=== PATIENT | male | born 1975 | race Caucasian/White ===

== ENCOUNTER 2019-05-11 19:11 | Inpatient (IN) | payer MEDICAID, OTHER ==
--- NOTE | 2019-05-11 20:09 | ED ---
Psychiatric Complaint - HPI Summary HPI Summary: 44 [facility] [place] and father having paranoid thoughts about the police and people from [place] following him x1.5 weeks. 2 days ago, patient started feeling that he needed to run from these people. He states that after parking his car, he was chased into the [place] and had to hide there for hours. Patient states they confronted him at one point but didn't say anything to him. Parents wanted him to be evaluated in the ED for these thoughts. Symptoms aggravated by nothing. Symptoms alleviated by nothing. No similar symptoms in the past. No fever, cough, chest pain, shortness of breath, n/v/d, urinary dysfunction, insomnia. Medications reviewed. No pertinent PMHx. No surgical hx. FHx: maternal grandparents had diabetes. No smoking or recreational drugs. Admits to drinking 1-2 glass whiskey daily. No alcohol this evening. - History Of Current Complaint Chief Complaint: EDMentalHealth Time Seen by Provider: 05/11/19 19:58 Hx Obtained From: Patient Onset/Duration: Lasting Weeks - 1.5, Still Present Timing: Constant Severity Currently: None Aggravating Factor(s): Nothing Alleviating Factor(s): Nothing Associated Signs And Symptoms: Positive: Negative - fever, cough, chest pain, shortness of breath, n/v/d, urinary dysfunction, insomnia - Allergies/Home Medications Allergies/Adverse Reactions: Allergies Allergy/AdvReac Type Severity Reaction Status Date / Time No Known Allergies Allergy Verified 05/11/19 19:19 Home Medications: Home Medications Omeprazole CAP (NF) [Prilosec CAP* 20 MG] 20 mg PO DAILY 05/11/19 [History Confirmed 05/11/19] PMH/Surg Hx/FS Hx/Imm Hx Endocrine/Hematology History: Denies: Hx Diabetes, Hx Thyroid Disease Cardiovascular History: Denies: Hx Hypertension - Surgical History Surgical History: None Infectious Disease History: No Infectious Disease History: Denies: Traveled Outside the [place] in Last 30 Days - Family History Known Family History: Positive: Diabetes - maternal grandparents - Social History Alcohol Use: Daily Alcohol Amount: 1-2 glasses of whiskey Substance Use Type: Reports: None Hx Tobacco Use: No Smoking Status (MU): Never Smoked Tobacco Review of Systems - ROS Summary Review of Systems Summary: Home Medications Medication Instructions Recorded Confirmed Type Omeprazole CAP (NF) [Prilosec CAP* 20 mg PO DAILY 05/11/19 05/11/19 History 20 MG] Negative: Fever Negative: Chest Pain Negative: Shortness Of Breath, Cough Negative: Vomiting, Diarrhea, Nausea Genitourinary: Negative - urinary dysfunction Positive: Other - paranoid thoughts; NEG: insomnia All Other Systems Reviewed And Are Negative: Yes Physical Exam - Summary Physical Exam Summary: General: Thin MALE. No acute distress. HEENT: Normocephalic, Atraumatic. Eyes: Conjuctiva normal, PERRL. Oropharynx: Clear, mucous membranes moist, (-) exudates. Neck: Soft, FROM, (-) lymphadenopathy, (-) thyromegaly, (-) JVD. Cardiovascular: Normal sinus rhythm, (-) murmur. Lungs: Clear to auscultation bilaterally (-) wheezes, (-) rales, (-) rhonchi. Abdomen: Soft, non-tender, non-distended, (-) organomegaly, normal bowel sounds. Back: (-) CVA tenderness Extremities: No edema. Skin: Warm, dry, (-) rash. Neuro: Alert and oriented x3, no focal deficits. Psychiatric: Affect is normal, patient makes good eye contact Triage Information Reviewed: Yes Vital Signs On Initial Exam: Initial Vitals Temp Pulse Resp BP Pulse Ox 99.1 F 85 15 155/115 97 05/11/19 19:16 05/11/19 19:16 05/11/19 19:16 05/11/19 19:16 05/11/19 19:16 Vital Signs Reviewed: Yes Procedures - Sedation Patient Received Moderate/Deep Sedation with Procedure: No Diagnostics - Vital Signs Vital Signs Temp Pulse Resp BP Pulse Ox 05/11/19 19:16 99.1 F 85 15 155/115 97 - Laboratory Result Diagrams: 05/11/19 20:19 05/11/19 20:19 Lab Statement: Any lab studies that have been ordered have been reviewed, and results considered in the medical decision making process. Re-Evaluation - Re-Evaluation First Eval Re-Evaluation Time: 21:43 Comment: patient is medically cleared for MHE Course/Dx - Course Course Of Treatment: 44-year-old male brought in by his parents for evaluation. Patient states that he is being followed the last couple weeks. Had an episode over the weekend where he had to get away from people that were following him. He got out of his car and ran into the [place]. Stayed there all night. Patient denies any medical problems. Denies this ever happening before. Denies any drug use. Workup negative. Patient is pending mental health evaluation. I signed out at change of shift. - Differential Dx/Clinical Impression Provider Diagnosis: Paranoia Discharge ED - Sign-Out/Discharge Documenting (check all that apply): Sign-Out Patient Signing out patient TO: Sue Kang - awaiting psych eval - Discharge Plan Condition: Stable Referrals: Sukumar Kingsley MD [Primary Care Provider] - - Billing Disposition and Condition Condition: STABLE - Attestation Statements Document Initiated by Curtibe: Yes Documenting Scribe: Amy Valencia Provider For Whom Curtibe is Documenting (Include Credential): Shanae Rodriguez MD Scribe Attestation: I, Amy Valencia, scribed for Shanae Rodriguez MD on 05/12/19 at 0634. Scribe Documentation Reviewed: Yes Provider Attestation: The documentation as recorded by the scribeAmy accurately reflects the service I personally performed and the decisions made by me, Shanae Rodriguez MD Status of Scribe Document: Viewed
[2019-05-11 20:26] LABS: ABS Eosinophils 0.1 10^3/ul (0-0.6); ABS Lymphocytes 1.2 10^3/ul (1.0-4.8); ABS Monocytes 0.9 10^3/ul (0-0.8); ABS Neutrophils 3.1 10^3/ul (1.5-7.7); Eosinophil % 1.1 %; Hematocrit 39 % (42-52); Hemoglobin 13.9 g/dL (14.0-18.0); Lymphocyte % 23.2 %; Mean Corpuscular HGB Conc 35 g/dL (31-36); Mean Corpuscular Hemoglobin 36 pg (27-31); Mean Corpuscular Volume 100 fL (80-94); Mean Platelet Volume 7.1 fL (7.4-10.4); Nucleated Red Blood Cells % 0.1; Platelet Count 244 10^3/uL (150-450); Red Blood Count 3.91 10^6 /uL (4.18-5.48); Red Cell Distribution Width 13 % (10-15); White Blood Count 5.3 10^3/uL (3.5-10.8)
[2019-05-11 20:47] LABS: ALT 16 U/L (7-52); AST 26 U/L (13-39); Albumin 4.3 g/dL (3.2-5.2); Albumin/Globulin Ratio 1.4 (1-3); Alkaline Phosphatase 49 U/L (34-104); Anion Gap 10 mmol/L (2-11); BUN/Creatinine Ratio 16.2 (8-20); Blood Urea Nitrogen 11 mg/dL (6-24); CO2 Carbon Dioxide 27 mmol/L (22-32); Calcium 9.7 mg/dL (8.6-10.3); Chloride 99 mmol/L (101-111); EGFR African American 151.9 (>60); EGFR Non-African American 125.5 (>60); Globulin 3.1 g/dL (2-4); Glucose 106 mg/dL (70-100); Potassium 3.8 mmol/L (3.5-5.0); Sodium 136 mmol/L (135-145); Total Protein 7.4 g/dL (6.4-8.9)
[2019-05-11 21:19] LABS: TSH (Thyroid Stimulating Horm) 3.73 mcIU/mL (0.34-5.60)
[2019-05-11 21:34] LABS: Acetaminophen < 15 mcg/mL; Alcohol 16 mg/dL (<10); Salicylate < 2.50 mg/dL (<30)
[2019-05-11 22:12] LABS: Urine Appearance Clear; Urine Bilirubin Negative (Negative); Urine Blood Negative (Negative); Urine Color Straw; Urine Glucose Negative (Negative); Urine Ketones Negative (Negative); Urine Nitrite Negative (Negative); Urine Protein Negative (Negative); Urine Urobilinogen Negative (Negative)
[2019-05-11 22:31] LABS: Urine Benzodiazepine Screen None Detected (None Detect); Urine Opiates Screen None Detected (None Detect)
--- NOTE | 2019-05-12 07:08 | ED ---
Progress - Progress Note Progress Note: Patient signed out from Dr. Rodriguez at 0700 on 05/12/19 awaiting psychiatric evaluation and pending disposition. Re-Evaluation - Re-Evaluation First Eval Re-Evaluation Time: 21:43 Comment: patient is medically cleared for MHE 2nd re-eval Re-Evaluation Time: 10:02 Change: Unchanged Comment: Per Dr. Soria, pt will be admitted on a 9.39 w/ dx of unspecified psychotic disorder. Course/Dx - Diagnoses Provider Diagnoses: Unspecified psychosis Discharge ED - Sign-Out/Discharge Documenting (check all that apply): Patient Departure, Receiving Sign-Out Receiving patient FROM: Shanae Rodriguez - Discharge Plan Condition: Stable Disposition: [facility]IATRIC FACILITY[facility] - Billing Disposition and Condition Condition: STABLE Disposition: Psychiatric Facility [facility] - Attestation Statements Document Initiated by Scribe: Yes Documenting Scribe: Lucita Holcomb Provider For Whom Scribe is Documenting (Include Credential): Sue Kang MD. Scribe Attestation: Lucita Torres, scribed for Sue Kang MD. on 05/12/19 at 1250. Scribe Documentation Reviewed: Yes Provider Attestation: The documentation as recorded by the scribeLucita accurately reflects the service I personally performed and the decisions made by Sue jones MD. Status of Scribe Document: Viewed
--- NOTE | 2019-05-12 08:29 | PN ---
ED Psychiatric Progress Note Date of Service: 05/11/19 Subjective: This is a 44 year-old M who is pending admission to [facility] / transfer to another psychiatric facility / discharge to home / or being observed secondary to paranoia. Pt. examined in bed 12 at 0828. He is walking around room in NAD. To restroom. Objective: Vitals: Most recent vital signs documented below. General NAD, Alert and oriented x3. Laboratory: Current laboratory results documented below. Assessment: Paranoia. Plan: Pending MHE. Vital Signs Temp Pulse Resp BP Pulse Ox 99.5 F 73 15 120/83 98 05/12/19 06:12 05/12/19 06:12 05/12/19 06:12 05/12/19 06:12 05/12/19 06:12 Lab Results - Entire Visit 05/11/19 05/11/19 05/11/19 21:35 21:35 20:19 WBC RBC Hgb Hct MCV MCH MCHC RDW Plt Count MPV Neut % (Auto) Lymph % (Auto) Loup % (Auto) Eos % (Auto) Baso % (Auto) Absolute Neuts (auto) Absolute Lymphs (auto) Absolute Monos (auto) Absolute Eos (auto) Absolute Basos (auto) Absolute Nucleated RBC Nucleated RBC % Sodium 136 Potassium 3.8 Chloride 99 L Carbon Dioxide 27 Anion Gap 10 BUN 11 Creatinine 0.68 Est GFR ( Amer) 151.9 Est GFR (Non-Af Amer) 125.5 BUN/Creatinine Ratio 16.2 Glucose 106 H Calcium 9.7 Total Bilirubin 0.30 AST 26 ALT 16 Alkaline Phosphatase 49 Total Protein 7.4 Albumin 4.3 Globulin 3.1 Albumin/Globulin Ratio 1.4 TSH 3.73 Urine Color Straw Urine Appearance Clear Urine pH 6.0 Ur Specific Independence 1.010 Urine Protein Negative Urine Ketones Negative Urine Blood Negative Urine Nitrate Negative Urine Bilirubin Negative Urine Urobilinogen Negative Ur Leukocyte Esterase Negative Urine Glucose Negative Salicylates < 2.50 Urine Opiates Screen None detected Acetaminophen < 15 Ur Barbiturates Screen None detected Ur Phencyclidine Scrn None detected Ur Amphetamines Screen None detected U Benzodiazepines Scrn None detected Urine Cocaine Screen Presumptive positive A U Cannabinoids Screen None detected Serum Alcohol 16 H 05/11/19 20:19 WBC 5.3 RBC 3.91 L Hgb 13.9 L Hct 39 L MCV 100 H MCH 36 H MCHC 35 RDW 13 Plt Count 244 MPV 7.1 L Neut % (Auto) 58.6 Lymph % (Auto) 23.2 Loup % (Auto) 16.2 Eos % (Auto) 1.1 Baso % (Auto) 0.9 Absolute Neuts (auto) 3.1 Absolute Lymphs (auto) 1.2 Absolute Monos (auto) 0.9 H Absolute Eos (auto) 0.1 Absolute Basos (auto) 0.0 Absolute Nucleated RBC 0.0 Nucleated RBC % 0.1 Sodium Potassium Chloride Carbon Dioxide Anion Gap BUN Creatinine Est GFR ( Amer) Est GFR (Non-Af Amer) BUN/Creatinine Ratio Glucose Calcium Total Bilirubin AST ALT Alkaline Phosphatase Total Protein Albumin Globulin Albumin/Globulin Ratio TSH Urine Color Urine Appearance Urine pH Ur Specific Independence Urine Protein Urine Ketones Urine Blood Urine Nitrate Urine Bilirubin Urine Urobilinogen Ur Leukocyte Esterase Urine Glucose Salicylates Urine Opiates Screen Acetaminophen Ur Barbiturates Screen Ur Phencyclidine Scrn Ur Amphetamines Screen U Benzodiazepines Scrn Urine Cocaine Screen U Cannabinoids Screen Serum Alcohol Attestation Statement Provider Attestation: I was available for consult. This patient was seen by the AG[facility]. The patient was not presented to, seen by, or examined by me. -Norman
[2019-05-12] MEDS ORDERED: Acetaminophen TAB* 325 MG PO PRN (10:10)
[2019-05-12] MEDS ORDERED: Al Hydrox/Mg Hydrox/Simet LIQ* 30 ML UDC PO PRN (10:10)
[2019-05-12] MEDS ORDERED: chlorproMAZINE TAB* 50 MG PO PRN (10:13)
[2019-05-12] MEDS ORDERED: LORazepam TAB(*) 1 MG PO SCH (11:00)
[2019-05-12] MEDS: Folic Acid TAB* 1 MG PO SCH (14:17)
[2019-05-12] MEDS: Thiamine TAB* 100 MG TAB PO SCH (14:17)
[2019-05-13] MEDS: Pantoprazole TAB * 40 MG TAB PO SCH (09:40)
[2019-05-13] MEDS: Folic Acid TAB* 1 MG PO SCH (09:40)
[2019-05-13] MEDS: Thiamine TAB* 100 MG TAB PO SCH (09:40)
--- NOTE | 2019-05-13 09:54 | HP ---
H&P (Free Text) History and Physical: Justification for admission: Immediate Safety. CC " People were chasing me" The patient was brought to [facility] by his father after the patient was experiencing paranoia over the last week. He believes that people were out to get him for reasons he is unable to explain. He reported that on Saturday he got out of his car and ran into the [place] for 8 hours. He reported seeing a group of 20 people that he called the " [place] [employer]" and then he saw them disappear into the [place]. He reported going to the police department to pick up attendant his car and there he noticed that his timeline did not match the time his car was towed. The patient inquires if the incident that happened is real. The patient reported using cocaine after the incident said that he was "self medicating" because he was scared. During the last 2 days he reported that people are following him in cars after he leaves work and that he shuts off his phone so people do not track him. He reported that his father has firearms that he has access to and denied stockpiles of medications. He reported no changes in sleep or appetite. The patient denied suicidal and or homicidal ideation intent or plan. The patient reported hearing the people that are following him talk and saw their faces. Patient denied sweating, tremors, seizures. Psychosis Does not endorse hearing things that other people do not hear or seeing things other people do not see. Denied feeling that TV is making references. Denied feeling that people are spying , following , or reading their thoughts. MDD Denied feeling depressed. Denied having diminished interests which were found to be enjoyable in the past. Denied having crying spells , feeling empty inside , feelings of hopelessness , and worthlessness. Denied unintentional weight loss and appetite. Denied interruption of sleep , or feeling tired throughout the day. Denied loss of energy or lack of motivation to complete tasks. Denied overwhelming feelings of guilt or decreased concentration. Denied recurrent thoughts of . Denied thoughts that they would be better off . Anxiety Denied having symptoms of anxiety such as having times where heart feels that it is beating out of chest , sweaty palms, or shallow breathing. Denied having uncomfortable or intrusive thoughts. Denied feeling restless, high strung, or worrying too much most of the time. Bipolar Denied symptoms of rbook such as having many ideas at once. Denied increased talkativeness where no one can interrupt. Denied feeling irritable most of the time while having an persistent abundance of energy most of the day without the use of energy drinks, stimulants, or recreational drug use. Denied an increase in intensity in goal directed activities. Denied having the decreased need to sleep for days , having prolonged elevated mood , or feeling on top of the world. Denied impulsive risky sexual encounters. Denied spending money recklessly , going on spending sprees wiping out savings. Denied impulsively traveling out of town or country, having [place], and unrealistic wealth or fame. Phobias: Patient denied having excessive fear of a particular thing or situation. Eating disorders: Patient denied having excessive eating habits or feelings of guilt after eating. Denied repeated episodes of self induced vomiting after eating. PTSD Denied flashbacks, nightmares and avoidance of a prior traumatic event. PAST PSYCHIATRIC HISTORY: Prior Diagnosis :None History of past Psychiatric Hospitalizations: No prior psychiatric admission. History of past suicide/homicide attempts : Denied past suicide attempts or self injurious behaviors. No history of violence. Outpatient follow-up: None Medications: No past trials of medication Guardianship: None. FAMILY HISTORY: - Suicide: Denied family history of suicide. - Mental illness: Denied a history of mental health in immediate family members. - Substance abuse: Denied substance abuse among family members. SUBSTANCE ABUSE HISTORY: - EtOH: Drinks on average 4 times a week, usually 2 beers or whiskey drinks at a time. DUI 6 years ago and underwent alcohol rehabilitation program via [facility]. No history of blackouts, seizures, DTs or past hospitalizations due to alcohol. - Tobacco: Used in the past quit a couple of years ago - Cannabis: Denied - Heroin: Denied - Cocaine: Last use was over the weekend per patient uses 1-2 times a year - Substance abuse treatment: DUI 6 years ago and underwent alcohol rehabilitation program via [facility]. SOCIAL HISTORY: - Denied a history of childhood physical and or sexual abuse Born in [place] and raised by both parents. - Education: No history of special education. - Living situation: Currently lives in [place] with his parents - Employment history: Works at [employer] - Relationship: Single and has no children. - Legal history: DUI 6 years ago - service history: Denied PAST MEDICAL HISTORY: Denied heart disease, diabetes, cancer and/ or other medical conditions. - Allergies: Denied drug or other allergies. Physical Exam: Please see ED note Mental Status Exam on Admission APPEARANCE : 44 year old male who appears stated age. Patient is not malodourous, and appears to have fair hygiene and grooming. BEHAVIOR: Cooperative , calm EYE CONTACT: Fair PSYCHOMOTOR ACTIVITY: No psychomotor agitation or retardation. MOVEMENTS: No abnormal movements observed. SPEECH : Normal rate, rhythm, volume and tone. MOOD : " Frightened" AFFECT : Type is anxious, Range is restricted Mood Congruent THOUGHT PROCESS: Formulated and organized in a logical, linear goal directed manner. THOUGHT CONTENT: paranoid delusions PERCEPTION: auditory or visual hallucinations. SUICIDALITY Denied suicidal ideation, intent or plan. HOMICIDALITY Denied homicidal ideation, intent or plan. Insight/judgment: Poor insight and judgment ORIENTATION: Oriented to self, location, and time. Diagnosis on Admission: Unspecified psychosis. Assessment: 44 year old male with no prior psychiatric history experiencing recent paranoid delusions thinking that people are following him. Plan #Admit to BSU, Q15 minute observation. Start regular diet. Encourage participation in activities on the milieu. #Patient evaluated in ED and was determined by the emergency room Physician to be medically fit for admission to the BSU. # Justification for Admission: For immediate safety per outlined in the [place] Mental Hygiene Code. # The patient requires psychiatric inpatient admission at this time to assure safety, receive treatment and work toward stabilization. # Labs ordered: CBC, CMP, UDS, TSH, HBA1c, TSH, Toxicology screen, Urine analysis, and lipid profile. # EKG ordered for risk of QT prolongation of antipsychotic medication. # Obtain collateral information # Collaboration with Social Work # CT brain w/wo given late age presentation of psychosis to rule out mass structural issue. # WAM was in place and discontinued # Start Abilify 5mg daily. # Vitamin B12, Folate level # CT brain w/wo results show no abnormality. # Substance Abuse resources offered and declined #Goals before discharge include: To eliminate/ reduce paranoia Tentative Discharge: Pending psychiatric stabilization The risks, benefits, and alternative treatment options were discussed as well as the risks of refusing treatment. After this discussion and an acknowledgement of this understanding was made. A risk/ benefit assessment of treatment was considered and discussed with the patient. When comparing the risks of treatment with the dangers of not receiving treatment, the benefits of treatment outweigh the treatment risks at this time. Risks of allergy, suicidal ideation, behavioral changes, dystonia, rashes, electrolyte imbalances, movement disorders, cardiac conduction changes, serotonin syndrome, metabolic risks and NMS were among some of the risks discussed. Acetaminophen (Tylenol Tab*) 650 mg PO Q4H PRN PRN Reason: for pain; or Temp >101 F Al Hydrox/Mg Hydrox/Simethicone (Maalox Plus*) 30 ml PO Q4H PRN PRN Reason: INDIGESTION Aripiprazole (Abilify Tab*) 5 mg PO DAILY [facility] Chlorpromazine HCl (Thorazine Tab*) 100 mg PO Q6H PRN PRN Reason: AGITATION Folic Acid (Folvite Tab*) 1 mg PO DAILY [facility] Last Admin: 05/13/19 09:40 Dose: 1 mg Pantoprazole Sodium (Protonix Tab*) 40 mg PO DAILY [facility] Last Admin: 05/13/19 09:40 Dose: 40 mg Thiamine HCl (Vitamin B-1 Tab*) 100 mg PO DAILY [facility] Last Admin: 05/13/19 09:40 Dose: 100 mg Sodium 136 mmol/L (135-145) 05/11/19 20:19 Potassium 3.8 mmol/L (3.5-5.0) 05/11/19 20:19 BUN 11 mg/dL (6-24) 05/11/19 20:19 Creatinine 0.68 mg/dL (0.67-1.17) 05/11/19 20:19 Calcium 9.7 mg/dL (8.6-10.3) 05/11/19 20:19 AST 26 U/L (13-39) 05/11/19 20:19 ALT 16 U/L (7-52) 05/11/19 20:19 Triglycerides 225 mg/dL 05/14/19 07:31 Cholesterol 221 mg/dL 05/14/19 07:31 LDL Cholesterol 112 mg/dL 05/14/19 07:31
[2019-05-13] MEDS ORDERED: Iohexol 300* (CONTRAST) 10 ML SDV IV ONE (11:41)
[2019-05-13] MEDS ORDERED: ARIPiprazole TAB* 5 MG PO SCH (13:00)
[2019-05-14 08:14] LABS: HDL Cholesterol 63.7 mg/dL
[2019-05-14 08:59] LABS: Folate 17.82 ng/mL (>3.99)
--- NOTE | 2019-05-14 11:08 | PN ---
Subjective - Subjective Date of Service: 05/14/19 Service Type: 45859 Hosp care 35 min high complexity Subjective: Nursing Report: Patient was visible on unit, no behavioral incidents. Slept overnight. He is attending group activities. CC: "I am fine" Patient was seen and evaluated in the common room. Patient gave permission to speak to his family but would not like his family to know about his drug screen results. His mother reported that he went over to a friends on Saturday and on the way back he had the episode where he thought people were following him and ran into the [place]wig. His mother requested the medical record and was directed to medical records and informed about the need for patient authorization. He reported having adequate appetite and sleep. The patient reports attending and participating in day groups. Per nursing no behavioral issues or overnight events reported. Patient reported that he is tolerating medications without side effects. Objective - General Observations Appearance: Neat Appears Stated Age: Yes Stature: WNL Posture: WNL Eye Contact: Average Behavior/Activity: WNL - Interaction Observations Attitude Towards Examiner: Cooperative Stated Mood: Euthymic Affect: Restricted Speech Pattern/Tone: Clear, Appropriate Thought Process: Coherent Perception: WNL Thought Content: WNL Hallucination Type: None Delusion Type: None - Cognitive Function Orientation: A&O x 4 Level of Consciousness: Awake Assessment - Assessment Merits Inpatient Hospitalization: For Immediate Safety Clinical Impression: 44 year old male with no prior psychiatric history experiencing recent paranoid delusions thinking that people are following him UDS shows positive drug screen for cocaine . Plan - Plan Treatment Plan: Name: MICHEL BUCK Birthdate: 1975 [id number] #Q30 minute observation with staff pass. # Brief episode of psychosis most likely due to cocaine use. # The patient requires psychiatric inpatient admission at this time to assure safety, receive treatment and work toward stabilization. # Obtained collateral information from patients mother who confirmed that the patient has no access to firearms # Will follow up at [facility] # CT brain w/wo results show no abnormalities # Patient declined EEG # Abilify 10mg daily. # Vitamin B12, Folate level # CT brain w/wo results show no abnormality. # Alcohol and Substance Abuse resources offered and patient declined #Goals before discharge include: To eliminate/ reduce paranoia Tentative Discharge: Tomorrow 05/11/19 05/11/19 05/11/19 20:19 20:19 21:35 WBC 5.3 RBC 3.91 L Hgb 13.9 L Hct 39 L MCV 100 H MCH 36 H MCHC 35 RDW 13 Plt Count 244 MPV 7.1 L Neut % (Auto) 58.6 Lymph % (Auto) 23.2 [place] % (Auto) 16.2 Eos % (Auto) 1.1 Baso % (Auto) 0.9 Absolute Neuts (auto) 3.1 Absolute Lymphs (auto) 1.2 Absolute Monos (auto) 0.9 H Absolute Eos (auto) 0.1 Absolute Basos (auto) 0.0 Absolute Nucleated RBC 0.0 Nucleated RBC % 0.1 Sodium 136 Potassium 3.8 Chloride 99 L Carbon Dioxide 27 Anion Gap 10 BUN 11 Creatinine 0.68 Est GFR ( Amer) 151.9 Est GFR (Non-Af Amer) 125.5 BUN/Creatinine Ratio 16.2 Glucose 106 H Hemoglobin A1c Calcium 9.7 Total Bilirubin 0.30 AST 26 ALT 16 Alkaline Phosphatase 49 Total Protein 7.4 Albumin 4.3 Globulin 3.1 Albumin/Globulin Ratio 1.4 Triglycerides Cholesterol LDL Cholesterol HDL Cholesterol Vitamin B12 Folate TSH 3.73 Urine Color Straw Urine Appearance Clear Urine pH 6.0 Ur Specific [place] 1.010 Urine Protein Negative Urine Ketones Negative Urine Blood Negative Urine Nitrate Negative Urine Bilirubin Negative Urine Urobilinogen Negative Ur Leukocyte Esterase Negative Urine Glucose Negative Salicylates < 2.50 Urine Opiates Screen Acetaminophen < 15 Ur Barbiturates Screen Ur Phencyclidine Scrn Ur Amphetamines Screen U Benzodiazepines Scrn Urine Cocaine Screen U Cannabinoids Screen Serum Alcohol 16 H 05/11/19 05/14/19 05/14/19 21:35 07:31 07:31 WBC RBC Hgb Hct MCV MCH MCHC RDW Plt Count MPV Neut % (Auto) Lymph % (Auto) [place] % (Auto) Eos % (Auto) Baso % (Auto) Absolute Neuts (auto) Absolute Lymphs (auto) Absolute Monos (auto) Absolute Eos (auto) Absolute Basos (auto) Absolute Nucleated RBC Nucleated RBC % Sodium Potassium Chloride Carbon Dioxide Anion Gap BUN Creatinine Est GFR ( Amer) Est GFR (Non-Af Amer) BUN/Creatinine Ratio Glucose Hemoglobin A1c 5.1 Calcium Total Bilirubin AST ALT Alkaline Phosphatase Total Protein Albumin Globulin Albumin/Globulin Ratio Triglycerides 225 Cholesterol 221 LDL Cholesterol 112 HDL Cholesterol 63.7 Vitamin B12 327 Folate 17.82 TSH Urine Color Urine Appearance Urine pH Ur Specific [place] Urine Protein Urine Ketones Urine Blood Urine Nitrate Urine Bilirubin Urine Urobilinogen Ur Leukocyte Esterase Urine Glucose Salicylates Urine Opiates Screen None detected Acetaminophen Ur Barbiturates Screen None detected Ur Phencyclidine Scrn None detected Ur Amphetamines Screen None detected U Benzodiazepines Scrn None detected Urine Cocaine Screen Presumptive positive A U Cannabinoids Screen None detected Serum Alcohol Continued Medication Management: Continue Outpt Medication Medications: Current Medications Acetaminophen (Tylenol Tab*) 650 mg PO Q4H PRN PRN Reason: for pain; or Temp >101 F Al Hydrox/Mg Hydrox/Simethicone (Maalox Plus*) 30 ml PO Q4H PRN PRN Reason: INDIGESTION Aripiprazole (Abilify Tab*) 10 mg PO DAILY [facility] Chlorpromazine HCl (Thorazine Tab*) 100 mg PO Q6H PRN PRN Reason: AGITATION Folic Acid (Folvite Tab*) 1 mg PO DAILY [facility] Last Admin: 05/13/19 09:40 Dose: 1 mg Pantoprazole Sodium (Protonix Tab*) 40 mg PO DAILY [facility] Last Admin: 05/13/19 09:40 Dose: 40 mg Thiamine HCl (Vitamin B-1 Tab*) 100 mg PO DAILY [facility] Last Admin: 05/13/19 09:40 Dose: 100 mg - Discharge Plan Discharge Plan: Inpatient Hospitalization
[2019-05-14] MEDS: ARIPiprazole TAB* 5 MG PO SCH (12:22)
[2019-05-14] MEDS: Thiamine TAB* 100 MG TAB PO SCH (12:22)
[2019-05-14] MEDS: Folic Acid TAB* 1 MG PO SCH (12:22)
[2019-05-14] MEDS: Pantoprazole TAB * 40 MG TAB PO SCH (12:22)
[2019-05-14] MEDS ORDERED: Influenza VAC *QUAD* 2019-20* 0.5 ML SYRINGE IM ONE (16:00)
[2019-05-15 08:25] VITALS: BP 114/69
--- NOTE | 2019-05-15 09:00 | DS ---
Subjective - Subjective Service Types: 30587 [facility] Day Mgmt complex over 30 min Discharge Date: 05/15/19 Subjective: CC: "Looking forward to being discharged" Patient looks forward to going back to work and going snowboarding. He reported not having paranoia and plans to tell his mother about his recent cocaine use. The patient was seen and evaluated before discharge today. The patient reported having adequate appetite and sleep. Per nursing no behavioral issues or overnight events reported. Patient reported tolerating medications without side effects. Justification for admission: Immediate Safety. CC " People were chasing me" The patient was brought to [facility] by his father after the patient was experiencing paranoia over the last week. He believes that people were out to get him for reasons he is unable to explain. He reported that on Saturday he got out of his car and ran into the ludwig for 8 hours. He reported seeing a group of 20 people that he called the " [place]" and then he saw them disappear into the [place]. He reported going to the police department to picking supervisor his car and there he noticed that his timeline did not match the time his car was towed. The patient inquires if the incident that happened is real. The patient reported using cocaine after the incident said that he was "self medicating" because he was scared. During the last 2 days he reported that people are following him in cars after he leaves work and that he shuts off his phone so people do not track him. He reported that his father has firearms that he has access to and denied stockpiles of medications. He reported no changes in sleep or appetite. The patient denied suicidal and or homicidal ideation intent or plan. The patient reported hearing the people that are following him talk and saw their faces. Patient denied sweating, tremors, seizures. Psychosis Does not endorse hearing things that other people do not hear or seeing things other people do not see. Denied feeling that TV is making references. Denied feeling that people are spying , following , or reading their thoughts. MDD Denied feeling depressed. Denied having diminished interests which were found to be enjoyable in the past. Denied having crying spells , feeling empty inside , feelings of hopelessness , and worthlessness. Denied unintentional weight loss and appetite. Denied interruption of sleep , or feeling tired throughout the day. Denied loss of energy or lack of motivation to complete tasks. Denied overwhelming feelings of guilt or decreased concentration. Denied recurrent thoughts of . Denied thoughts that they would be better off . Anxiety Denied having symptoms of anxiety such as having times where heart feels that it is beating out of chest , sweaty palms, or shallow breathing. Denied having uncomfortable or intrusive thoughts. Denied feeling restless, high strung, or worrying too much most of the time. Bipolar Denied symptoms of brook such as having many ideas at once. Denied increased talkativeness where no one can interrupt. Denied feeling irritable most of the time while having an persistent abundance of energy most of the day without the use of energy drinks, stimulants, or recreational drug use. Denied an increase in intensity in goal directed activities. Denied having the decreased need to sleep for days , having prolonged elevated mood , or feeling on top of the world. Denied impulsive risky sexual encounters. Denied spending money recklessly , going on spending sprees wiping out savings. Denied impulsively traveling out of town or country, having [place], and unrealistic wealth or fame. Phobias: Patient denied having excessive fear of a particular thing or situation. Eating disorders: Patient denied having excessive eating habits or feelings of guilt after eating. Denied repeated episodes of self induced vomiting after eating. PTSD Denied flashbacks, nightmares and avoidance of a prior traumatic event. PAST PSYCHIATRIC HISTORY: Prior Diagnosis :None History of past Psychiatric Hospitalizations: No prior psychiatric admission. History of past suicide/homicide attempts : Denied past suicide attempts or self injurious behaviors. No history of violence. Outpatient follow-up: None Medications: No past trials of medication Guardianship: None. FAMILY HISTORY: - Suicide: Denied family history of suicide. - Mental illness: Denied a history of mental health in immediate family members. - Substance abuse: Denied substance abuse among family members. SUBSTANCE ABUSE HISTORY: - EtOH: Drinks on average 4 times a week, usually 2 beers or whiskey drinks at a time. DUI 6 years ago and underwent alcohol rehabilitation program via [facility]. No history of blackouts, seizures, DTs or past hospitalizations due to alcohol. - Tobacco: Used in the past quit a couple of years ago - Cannabis: Denied - Heroin: Denied - Cocaine: Last use was over the weekend per patient uses 1-2 times a year - Substance abuse treatment: DUI 6 years ago and underwent alcohol rehabilitation program via [facility]. SOCIAL HISTORY: - Denied a history of childhood physical and or sexual abuse Born in [place] and raised by both parents. - Education: No history of special education. - Living situation: Currently lives in [place] with his parents - Employment history: Works at [employer] - Relationship: Single and has no children. - Legal history: DUI 6 years ago - service history: Denied PAST MEDICAL HISTORY: Denied heart disease, diabetes, cancer and/ or other medical conditions. - Allergies: Denied drug or other allergies. Physical Exam: Please see ED note Mental Status Exam on Admission APPEARANCE : 44 year old male who appears stated age. Patient is not malodourous, and appears to have fair hygiene and grooming. BEHAVIOR: Cooperative , calm EYE CONTACT: Fair PSYCHOMOTOR ACTIVITY: No psychomotor agitation or retardation. MOVEMENTS: No abnormal movements observed. SPEECH : Normal rate, rhythm, volume and tone. MOOD : " Frightened" AFFECT : Type is anxious, Range is restricted Mood Congruent THOUGHT PROCESS: Formulated and organized in a logical, linear goal directed manner. THOUGHT CONTENT: paranoid delusions PERCEPTION: auditory or visual hallucinations. SUICIDALITY Denied suicidal ideation, intent or plan. HOMICIDALITY Denied homicidal ideation, intent or plan. Insight/judgment: Poor insight and judgment ORIENTATION: Oriented to self, location, and time. Diagnosis on Admission: Unspecified psychosis. Diagnosis on Discharge: Cocaine use disorder with recent psychotic episode, alcohol use disorder Condition at the time of discharge: At the time of discharge patient showed improvement of sleep and appetite. The patient was not a danger to self or others. The patient denied suicidal ideation, intent or plan. The patient denied homicidal targets, ideation, intent or plan. This patient participated in psychosocial rehabilitation and gained some insight into problems. The patient gained insight into mental illness, triggers, and treatment. The patient took medication as prescribed. The patient denied side effects of medication and objective signs of side effects were not evident. Therapy Resources were offered to the patient. Patient was given a supply of prescriptions at the time of discharge. The patient plans to attend follow up care with the follow up arrangements that were discussed and put in place. Patient was asked to keep appointments as scheduled, take medication as prescribed, have routine follow up care with their primary care physician and refrain from any use of alcohol or drugs. Objective - General Observations Appearance: Neat Appears Stated Age: Yes Stature: WNL Posture: WNL Eye Contact: Average Behavior/Activity: WNL - Interaction Observations Attitude Towards Examiner: Cooperative Stated Mood: Euthymic Affect: Restricted Speech Pattern/Tone: Clear, Appropriate, Normal Volume Thought Process: Coherent Perception: WNL Thought Content: WNL Hallucination Type: None Delusion Type: None - Cognitive Function Orientation: A&O x 4 Level of Consciousness: Awake Cognition: WNL - Medication Compliance Cooperative with Inpatient Medication Regimen: Yes - Group Participation Participates in Group Activities: Yes Treatment Course & Assessment Clinical Course & Impression: Hospital course part A: 44 year old male with no prior psychiatric history experiencing recent paranoid delusions thinking that people are following him UDS shows positive drug screen for cocaine. Hospital course part B: Labs ordered included CBC, CMP, UDS, TSH, HBA1c, TSH, CT brain w/wo, RPR with IgG, Vitamin B12 and Folic acid. Toxicology screen, Urine analysis, and lipid profile. Labs were reviewed and did not require the need for further evaluation. Vital signs were monitored during the course of admission. CT brain w/wo contrast results show no abnormality. Syphilis IgG, Vitamin b12 and folic acid level within normal limits. The patient was admitted to the adult behavioral unit and placed on 15 minute check for safety. At a later time the patient was on Q30 minute observation and staff pass privileges. With those limits being extended, patient was safe on all checks and there were no occurrence of behavioral incidents. The patient did well on the unit and went to groups. Interacted with peers had adequate sleep and regular appetite. Tolerated medication changes without side effects. Group therapy and services were offered. The risks, benefits, and alternative treatment options were discussed as well as of the risks of refusing treatment. Treatment associated risks discussed. After this discussion the patient made an acknowledgement of this understanding. Follow up care appointments were put in place. Monitoring for metabolic changes was reviewed and it was emphasized to the patient to be continued to be monitored upon discharge. The patient was informed not to abruptly stop or start new medications before consulting with a medical professional. Improvements in patient from the time of admission include: Improved affect, sleep and decrease in paranoia. The patient expressed readiness for discharge home. The patient presents with a broader range of affect, and the absence of depressed mood, delusions, perceptual disturbance. The patient denied suicidal and or homicidal ideation intent or plan. Overall, the patient responded well to inpatient treatment as evidenced by their report of strengthening of coping mechanisms, reduced distress, and more positive outlook on circumstances. Of note there was an improvement of recognizing how substances can effect thoughts , mood and behavior. Safety precautions were put in place which included involving the patient and their family to closely monitor for changes in mental state. In addition, implementing follow up care, screening for the need to remove/securing firearms , weapons and stockpile of medications. Patient/ family instructed to immediately call 911 should any safety concerns arise. AIMS was performed and insignificant for involuntary movement disorders. The patient was advised of the 24 hour / 7 days a week availability of the emergency room and to call 911 in the event of an emergency such as being suicidal and/ or homicidal. The patient was informed of the contact information for [facility], Suicide Prevention and Crisis Services, National Suicide Prevention Lifeline, [facility], Alcoholics Anonymous, and [facility]. Medications started included Abilify 10mg daily for paranoia. Patient has limited psychiatric history and has had one previous episode of psychosis. His course of episodes does not seem to reflect that of schizophrenia or another chronic persistent mental illness. His episode of paranoia was addressed by starting Abilify and assessment of safety measures. Patient plans to address the need for abilify after his next outpatient appointment at [facility]. Patient was informed of and offered substance abuse/ Alcohol cessation resources and declined. Family was contacted before discharge. The family confirmed that the patient is not a danger to himself and or others. At this time both the patient and family are eager for discharge and are in agreement with the discharge plan and can safely receive care in the less restrictive outpatient setting. They were advised on how the days following discharge can be a vulnerable period and to look out for warning signs associated with decompensation and progression of mental illness. They were notified of the resources available in the event these situations arise and confirmed that the patient has no access to firearms or stockpiles of medications. Patients mother confirmed that the patient does not have access to firearms and they are locked up without him having access. Patient was not assaultive or a behavioral problem during the course of admission. The patient showed good hygiene and was able to carry out activities of daily living. Patient will be discharged to live at home. Follow up appointment at [facility] Patient informed of follow up appointment times. See more details for follow up care in the discharge plan. Risk factors were mitigated by establishing the patients baseline with close contacts and arranging a family meeting. Implementing precautionary safety measures by confirming no stockpiles of medications and no access to firearms , providing mental health treatment, offering substance abuse resources and treatment, substance abuse therapy groups, stabilization of depressive features, arrangement of outpatient continuation of care, as well as provided a supportive care environment and therapy resources during the course of hospitalization. Safety plan was reviewed with the patient and treatment team and the patient verbalized steps to ensure their safety. Risk factors:, Age, Single, Cocaine and alcohol abuse, Protective factors: Currently no suicidal ideation, intent or plan. No prior suicide attempts. Limited past psychiatric history Has social/ family support system. No history of service. Currently no feelings of hopelessness, not in an occupation of social isolation, doesnt have multiple medical conditions, no family history of suicide, doesnt have access to firearms. Doesnt have command hallucinations and or psychotic features at this time. Not an anniversary of a loss of a loved one. No changes in relationship status, housing, job, or school. Currently future orientated. Patient engaged in treatment and compliant with medication. 05/14/19 05/14/19 05/14/19 07:31 07:31 07:31 Hemoglobin A1c 5.1 Triglycerides 225 Cholesterol 221 LDL Cholesterol 112 HDL Cholesterol 63.7 Vitamin B12 327 Folate 17.82 Syphilis IgG Antibody Negative Merits Inpatient Hospitalization: No Clear for Discharge: Adequate Clinical Respons Discharge Planning - Discharge Planning Discharge Plan: Outpatient Follow Up Outpatient Program: [facility] Recommendations for Continuing Care: Medication Management, Substance Abuse Counseling Medications: Current Medications Acetaminophen (Tylenol Tab*) 650 mg PO Q4H PRN PRN Reason: for pain; or Temp >101 F Al Hydrox/Mg Hydrox/Simethicone (Maalox Plus*) 30 ml PO Q4H PRN PRN Reason: INDIGESTION Aripiprazole (Abilify Tab*) 10 mg PO DAILY [facility] Last Admin: 05/14/19 12:22 Dose: 10 mg Chlorpromazine HCl (Thorazine Tab*) 100 mg PO Q6H PRN PRN Reason: AGITATION Folic Acid (Folvite Tab*) 1 mg PO DAILY [facility] Last Admin: 05/14/19 12:22 Dose: 1 mg Pantoprazole Sodium (Protonix Tab*) 40 mg PO DAILY [facility] Last Admin: 05/14/19 12:22 Dose: 40 mg Thiamine HCl (Vitamin B-1 Tab*) 100 mg PO DAILY [facility] Last Admin: 05/14/19 12:22 Dose: 100 mg Discharge Planning: Prescriptions provided for discharge [x] Yes [] No Follow up care details as per social work arrangements. Patient response to discharge plan: [x] eager for discharge [] agreeable with discharge plan [] ambivalent about discharge [] disagrees with discharge today
[2019-05-15] MEDS: ARIPiprazole TAB* 5 MG PO SCH (09:34)
[2019-05-15] MEDS: Folic Acid TAB* 1 MG PO SCH (09:34)
[2019-05-15] MEDS: Thiamine TAB* 100 MG TAB PO SCH (09:35)
[2019-05-15] MEDS: Pantoprazole TAB * 40 MG TAB PO SCH (09:35)
--- NOTE | 2019-05-15 11:29 | PN ---
BSU: Group Therapy Note - Service Type Service Type: 10604 Group Psychotherapy - Cognitive Behavioral Group Therapy ( CBT):Patient was attentive and participatory in CBT programming this morning, and remained in good behavioral control. Patient expressed positive insights regarding relevant treatment interventions and goals.
== END 2019-05-15 11:00 | disposition home or self-care (01) | DRG 774 ==
LOC: ED 19:11 → BSU 05-12 10:10
PROVIDERS: ADMIT Psychiatry & Neurology Psychiatry; ATTEND Psychiatry & Neurology Psychiatry
PROC: GZHZZZZ Group Psychotherapy (ICD-10-PCS; principal; 2019-05-15)
DX: F14.150 Cocaine abuse with cocaine-induced psychotic disorder with delusions (principal); F10.10 Alcohol abuse, uncomplicated; Y90.9 Presence of alcohol in blood, level not specified
CPT/HCPCS: 36415; 70470; 80053; 80061; 80307; 80320; 80329; 81003; 82607; 82746; 83036; 84443; 85025; 86780; 90853; 99222; 99233; 99238; 99284; A9270-GY; G0480; Q9967

== ENCOUNTER 2020-01-08 07:09 | Inpatient (IN) ==
[2020-01-08] MEDS ORDERED: Magnesium Hydroxide LIQ 30 ML UDC PO PRN (12:05)
[2020-01-08] MEDS ORDERED: Senna TAB 8.6 mg TAB PO PRN (12:05)
[2020-01-09] MEDS: Enoxaparin 40 MG/0.4 ML SYR SUBCUT SCH (08:29)
[2020-01-09] MEDS: Nicotine PATCH 7 MG/24 HR PATCH TRANSDERM SCH (08:29)
[2020-01-10] MEDS: Nicotine PATCH 7 MG/24 HR PATCH TRANSDERM SCH (09:50)
[2020-01-10] MEDS: Enoxaparin 40 MG/0.4 ML SYR SUBCUT SCH (09:55)
[2020-01-11 05:54] LABS: ABS Eosinophils 0.2 10^3/ul (0-0.6); ABS Lymphocytes 1.2 10^3/ul (1.0-4.8); ABS Neutrophils 2.8 10^3/ul (1.5-7.7); Eosinophil % 3.1 %; Hematocrit 27 % (42-52); Hemoglobin 9.9 g/dL (14.0-18.0); Mean Corpuscular HGB Conc 36 g/dL (31-36); Mean Corpuscular Hemoglobin 37 pg (27-31); Mean Corpuscular Volume 103 fL (80-94); Mean Platelet Volume 7.4 fL (7.4-10.4); Platelet Count 533 10^3/uL (150-450); Red Blood Count 2.66 10^6 /uL (4.18-5.48); Red Cell Distribution Width 13 % (10-15); White Blood Count 5.2 10^3/uL (3.5-10.8)
[2020-01-11 06:12] LABS: Albumin 3.7 g/dL (3.2-5.2); Albumin/Globulin Ratio 1.3 (1-3); BUN/Creatinine Ratio 20.3 (8-20); Calcium 9.1 mg/dL (8.6-10.3); EGFR African American 162.9 (>60); EGFR Non-African American 134.6 (>60); Globulin 2.9 g/dL (2-4); Potassium 4.2 mmol/L (3.5-5.0); Total Bilirubin 0.8 mg/dL (0.2-1.0); Total Protein 6.6 g/dL (6.4-8.9)
[2020-01-11] MEDS: Nicotine PATCH 7 MG/24 HR PATCH TRANSDERM SCH (08:51)
[2020-01-11] MEDS: Enoxaparin 40 MG/0.4 ML SYR SUBCUT SCH (08:51)
[2020-01-12] MEDS: Nicotine PATCH 7 MG/24 HR PATCH TRANSDERM SCH (08:36)
[2020-01-12] MEDS: Enoxaparin 40 MG/0.4 ML SYR SUBCUT SCH (08:36)
[2020-01-12] MEDS ORDERED: Polyethylene Glycol 3350 17 GM PACKET PO PRN (11:07)
[2020-01-12] MEDS: Senna TAB 8.6 mg TAB PO SCH (20:48)
[2020-01-13] MEDS: Nicotine PATCH 7 MG/24 HR PATCH TRANSDERM SCH (08:46)
[2020-01-13] MEDS: Enoxaparin 40 MG/0.4 ML SYR SUBCUT SCH (08:46)
[2020-01-13] MEDS: Senna TAB 8.6 mg TAB PO SCH (20:22)
[2020-01-14] MEDS: Enoxaparin 40 MG/0.4 ML SYR SUBCUT SCH (09:08)
[2020-01-14] MEDS: Nicotine PATCH 7 MG/24 HR PATCH TRANSDERM SCH (09:09)
[2020-01-14] MEDS: Senna TAB 8.6 mg TAB PO SCH (19:49)
[2020-01-15] MEDS: Enoxaparin 40 MG/0.4 ML SYR SUBCUT SCH (09:32)
[2020-01-15] MEDS: Nicotine PATCH 7 MG/24 HR PATCH TRANSDERM SCH (09:34)
[2020-01-15 16:51] VITALS: BP 119/66
[2020-01-15] MEDS: Senna TAB 8.6 mg TAB PO SCH (19:29)
== END 2020-01-15 20:45 | disposition short-term general hospital (02) | DRG 860 ==
LOC: PMRU 11:45
PROVIDERS: ADMIT Physical Medicine & Rehabilitation; ATTEND Physical Medicine & Rehabilitation

== ENCOUNTER 2020-01-25 08:42 | Inpatient (IN) ==
[2020-01-25] MEDS ORDERED: Magnesium Hydroxide LIQ 30 ML UDC PO PRN (11:48)
[2020-01-25] MEDS ORDERED: Senna TAB 8.6 mg TAB PO PRN (11:48)
[2020-01-25] MEDS: Enoxaparin 30 MG/0.3 ML SYR SUBCUT SCH (20:10)
[2020-01-26] MEDS: Enoxaparin 30 MG/0.3 ML SYR SUBCUT SCH ×2 (09:26→20:44)
[2020-01-27 07:09] LABS: ABS Basophils 0.1 10^3/ul (0-0.2); ABS Eosinophils 0.1 10^3/ul (0-0.6); ABS Lymphocytes 1.2 10^3/ul (1.0-4.8); ABS Monocytes 0.7 10^3/ul (0-0.8); ABS Neutrophils 4.4 10^3/ul (1.5-7.7); Eosinophil % 2.2 %; Hematocrit 32 % (42-52); Lymphocyte % 18.9 %; Mean Corpuscular HGB Conc 35 g/dL (31-36); Mean Corpuscular Hemoglobin 34 pg (27-31); Mean Corpuscular Volume 97 fL (80-94); Mean Platelet Volume 7.2 fL (7.4-10.4); Platelet Count 484 10^3/uL (150-450); Red Blood Count 3.27 10^6 /uL (4.18-5.48); Red Cell Distribution Width 14 % (10-15); White Blood Count 6.6 10^3/uL (3.5-10.8)
[2020-01-27 07:24] LABS: Albumin 4.1 g/dL (3.2-5.2); Albumin/Globulin Ratio 1.2 (1-3); BUN/Creatinine Ratio 29.6 (8-20); Calcium 9.9 mg/dL (8.6-10.3); EGFR African American 144.5 (>60); EGFR Non-African American 119.4 (>60); Globulin 3.4 g/dL (2-4); Potassium 4.1 mmol/L (3.5-5.0); Total Bilirubin 0.5 mg/dL (0.2-1.0); Total Protein 7.5 g/dL (6.4-8.9)
[2020-01-27] MEDS: Enoxaparin 30 MG/0.3 ML SYR SUBCUT SCH ×2 (08:08→20:35)
[2020-01-28] MEDS: Enoxaparin 30 MG/0.3 ML SYR SUBCUT SCH ×2 (09:09→20:18)
[2020-01-29 06:31] VITALS: BP 111/68
[2020-01-29] MEDS: Enoxaparin 30 MG/0.3 ML SYR SUBCUT SCH (08:25)
== END 2020-01-29 14:43 | disposition home or self-care (01) | DRG 860 ==
LOC: PMRU 11:24
PROVIDERS: ADMIT Physical Medicine & Rehabilitation; ATTEND Physical Medicine & Rehabilitation